=== PATIENT | female | born 1970 | race Caucasian/White ===

== ENCOUNTER → 2020-05-21 08:57 | Outpatient (CLI) | payer OTHER, SELFPAY ==
--- NOTE | ~2020-05-21 | MMUS_ITS ---
EXAMINATION: MM diagnostic carey RT w corazon, US breast RT limited HISTORY: Right breast pain TECHNIQUE: Additional 3-D tomosynthesis images of the right breast were performed and synthetic 2-D i mages were generated. CAD analysis was submitted and interpreted. High resolution right breast ultras ound was performed. COMPARISON: Comparison to multiple prior studies sequentially, with oldest reviewed study dated 02/02. FINDINGS: MAMMOGRAPHIC FINDINGS: Breast composed of scattered areas of fibroglandular density. There are no suspicious masses, calcifi cations or architectural distortion in the right breast to suggest malignancy. ULTRASOUND: Limited right breast ultrasound: Normal heterogeneous echotexture without focal solid or cystic mass. IMPRESSION: 1. No mammographic or sonographic evidence for malignancy in the right breast. 2. Routine yearly screening mammogram and regular clinical breast examination are recommended. BI-RADS Category 1: Negative Reviewed, dictated and finalized at location A. IMPRESSION: 1. No mammographic or sonographic evidence for malignancy in the right breast. 2. Routine yearly screening mammogram and regular clinical breast examination a re recommended. BI-RADS Category 1: Negative
== END ==
PROVIDERS: Visit Provider Obstetrics & Gynecology
DX: N63.0 Unspecified lump in unspecified breast (principal)
CPT/HCPCS: 76642; 77061; 77065; G0279

== ENCOUNTER 2021-01-29 12:28 | Outpatient (CLI) | payer OTHER, SELFPAY ==
--- NOTE | ~2021-01-29 | XR_ITS ---
EXAMINATION: XR shoulder LT min 2V INDICATION: Left shoulder pain TECHNIQUE: Four views of the left shoulder are submitted. COMPARISON: None FINDINGS: Normal alignment. No fracture. Glenohumeral and acromioclavicular joint spaces are normal. Soft tissues are unremarkable. IMPRESSION: 1. No acute osseous abnormality. Reviewed, dictated and finalized at location A. STRIAL CONTROLLER
--- NOTE | ~2021-01-29 | XR_ITS ---
EXAMINATION:XR_[id number]_CR DATE: 01/29/2021 13:11 INDICATION: Neck and left shoulder pain TECHNIQUE: AP, lateral, lateral swimmers and odontoid views of the cervical spine are provided. COMPARISON: None FINDINGS: There is reversal of the normal cervical lordosis. Alignment is normal. The odontoid is int act. No fracture is identified. The vertebral body heights are normal. There is mild loss of interver tebral disc space height at C5-6 and C6-7. Small degenerative osteophytes project from the anterior e ndplates of multiple vertebral bodies at C5-6 and C6-7. Prevertebral soft tissues are normal. IMPRESSION: 1. Mild cervical spondylosis without acute findings. Reviewed, dictated and finalized at location A. T OFFICE HELP
--- NOTE | ~2021-01-29 | XR_ITS ---
EXAMINATION: XR thoracic spine 2V DATE: 01/29/2021 13:11 INDICATION: Thoracic back pain TECHNIQUE: AP and lateral views of the thoracic spine are obtained. COMPARISON: None. FINDINGS: There is no fracture, dislocation, or subluxation. The vertebral body heights are maintaine d. There is mild loss of intervertebral disc space height in the midthoracic spine. Small degenerativ e osteophytes project from the anterior endplates of multiple vertebral bodies. Surgical clips in the right upper quadrant are likely from prior cholecystectomy. Sutures project over the midline upper a bdomen. IMPRESSION: 1. Mild thoracic spondylosis without acute findings. Reviewed, dictated and finalized at location A. LINE EXAMINER
== END 2021-01-29 12:29 ==
PROVIDERS: PCP Family Medicine; Visit Provider Nurse Practitioner Family
DX: M25.512 Pain in left shoulder (principal); M47.894 Other spondylosis, thoracic region; M47.892 Other spondylosis, cervical region
CPT/HCPCS: 72040; 72070; 73030

== ENCOUNTER 2021-02-03 13:30 | Outpatient (RCR) | payer OTHER, SELFPAY ==
[2020-12-15 14:00] VITALS: BP_SYST 140
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
--- NOTE | 2021-01-06 14:14 | PTOPEVAL ---
PHYSICAL THERAPY RE-EVALUATION AND UPDATED PLAN OF CARE 01-06-21 Refer to the clinical summary below for comparison to the initial evaluation. The goals were partially achieved. Continue PT treatment 1-2 x/wek for 4 weeks. Thank you for referring Kaylen Hernandez to [facility].? Please review, sign, date and return this plan of care MIGUEL ÁNGEL. I agree with and certify that the following plan of care is medically necessary. Referring Physician Date Attending Provider: Dinesh Limon MD *PT Outpatient Re-Evaluation Document 01/06/21 13:20 LORENA (Rec: 01/06/21 14:14 LORENA [id number]) Subjective Information Kaylen reports: is doing Query Text:As Reported By Patient/ exercises at home and using Family shoulder as able to at home; have been trying to do less at home, but pain with all activity- laundry only fold 2- 3 pieces of clothes then have to stop due to pain, unable to mop floor; worried that something is wrong with the shoulder; wants to continue therapy until see dr and have him check her shoulder; Pain Assessment Timing of Pain Assessment Timing of Pain Assessment Assessment Pain Scale Pain Scale Used Numeric (1 - 10) Self Report Pain Assessment Left Shoulder(s) Reported Pain Level 4 Pain Description Aching,Burning,Radiating, Tightness Pain Radiation Left Arm Radicular Pain Location into mid-lateral humerus; distal tricep- above elbow;in forearm 2-3x/day Pain Frequency Chronic,Continuous Other Pain Description quick sting and sharp pain last few seconds; Lowest Pain Intensity 2 Greatest Pain Intensity 7 Pain Aggravating Factors Exercise/Activity Other Pain Aggravating Factors quick motion of unplugging crockpot;close car door, with L arm Additional Pain Comments increase pain in thoracic and lumbar areas of back; Pain Score Pain Score 4: Self Report Additional Pain Score Comments with sleeping awaken 2-3 x/ night due to pain; cannot tolerate lying on her L shoulder in bed Interventions Used Interventions Used By Clinicians Education,Exercise Pain Relief Interventions Used By Heat Patient Upper Extremity Range of Mo
--- NOTE | 2021-02-03 14:19 | PTOPEVAL ---
Addendum entered by Chela Aguilar, PT 02/26/21 16:30: 02-26-21: pt returned to dept with orders to continue PT for her shoulder; this discharge will be disregarded; A reevaluation appointment of her shoulder has been scheduled to restart therapy for her shoulder; Original Note: PHYSICAL THERAPY DISCHARGE 02-03-21 Refer to the clinical summary for her status at today's session, compared to the last reevaluation. The goals were partially achieved--ROM and strength increased, but continues to have pain. Thank you for referring Kaylen Hernandez to [facility] [place], for the diagnosis of L shoulder pain. Please review, sign, date and return this discharge MIGUEL ÁNGEL. I agree with and certify that the following plan of care is medically necessary. Referring Physician Date Attending Provider: Dinesh Limon MD Referring Provider: Dinesh Limon MD Document 02/03/21 13:30 LORENA (Rec: 02/03/21 14:17 LORENA [id number]) Assessment Status Discharge Subjective Information Kaylen reports: shoulder is Query Text:As Reported By Patient/ better, but still aching and Family limiting her use of arm; not able to lie on L side; quick motions hurt and have dropped water bottle, after reaching into fridge to get it; saw last week- got xrays of neck, back and shoulder; dr to send over orders for neck/back treatment; agrees to discharge from PT for shoulder , to continue home exercises. Pain Assessment Timing of Pain Assessment Timing of Pain Assessment Assessment Pain Scale Pain Scale Used Numeric (1 - 10) Self Report Pain Assessment Left Shoulder(s) Reported Pain Level 2 Pain Description Aching,Soreness,Tender on Palpation,Tightness Pain Radiation Left Arm Pain Frequency Chronic,Continuous Other Pain Description anterior joint/pec and posterior joint/tricep, radicular to mid tricep Lowest Pain Intensity 2 Greatest Pain Intensity 5 Pain Aggravating Factors Exercise/Activity Other Pain Aggravating Factors cannot lie on L shoulder Pain Behaviors Grimacing,Guarding Pain Score Pain Score 2: Self Report Additional Pain Score Comments self assessment with the Quick DASH is 34% functional limitation; able to do home tasks- increase pain with small, quick motions-close car door, reach fridge door,
--- NOTE | 2021-03-02 10:45 | PCPTNOTE ---
pt called and canceled appointment for shoulder reevaluation, due to being in ER for falling down stairs.
--- NOTE | 2021-03-02 11:41 | PCPTNOTE ---
This treatment is being continued on visit number [id number]. Please see documentation on both accounts to view progress. Completed interventions, outcomes, and problems have been marked as Inactive to facilitate the copying of the Care plan routine for recurring accounts.
== END 2021-03-02 11:30 | disposition home or self-care (01) ==
LOC: ANHPT 13:30
PROVIDERS: PCP Family Medicine; Referring Provider Family Medicine; Visit Provider Family Medicine
DX: M25.512 Pain in left shoulder (principal)
CPT/HCPCS: 97014; 97035; 97110; 97140; 97161; G0283

== ENCOUNTER 2021-03-02 10:29 | Emergency (ER) | payer OTHER, SELFPAY ==
--- NOTE | ~2021-03-02 | XR_ITS ---
EXAMINATION: XR hip LT 2V w AP pelvis DATE: 03/02/2021 12:17 INDICATION: Left hip pain. Fall. TECHNIQUE: An anteroposterior view of the pelvis and 2 views of left hip were obtained. COMPARISON: None. FINDINGS: Bone alignment is normal. No fracture. There is mild osteoarthritis of the hips characteriz ed by tiny marginal osteophytes. There is an intrauterine device in expected position. IMPRESSION: 1. Mild osteoarthritis of the hips. Reviewed, dictated and finalized at location A.
--- NOTE | ~2021-03-02 | XR_ITS ---
EXAMINATION: XR femur LT min 2V DATE: 03/02/2021 12:17 INDICATION: Left thigh pain. Fall. TECHNIQUE: 2 views of left femur on 4 radiographs were obtained. COMPARISON: None. FINDINGS: Bone alignment is normal. No fracture. There is mild left hip and knee osteoarthritis angela cterized by tiny marginal osteophytes. No knee joint effusion. There is an intrauterine device in exp ected position. IMPRESSION: 1. Mild polyarticular osteoarthritis. Reviewed, dictated and finalized at location A.
[2021-03-02 11:36] VITALS: BP 133/75; PULSE 70; RESP 14; TEMP 36.9; O2SAT 99
[2021-03-02] MEDS: HYDROcodone/acetaminophen (*CRX) 5-325 MG TABLET 1 TAB PO (11:43)
--- NOTE | 2021-03-02 13:31 | ED.GENADULT ---
HPI - General Adult General Chief complaint: Fall Stated complaint: fall down 5 steps Time Seen by Provider: 03/02/21 10:54 History of Present Illness HPI narrative: Patient is a 50-year-old female who presents ER after a trip and fall. She fell forward down 5 stairs. Her left leg got extended backwards behind her. She has left anterior thigh pain. No numbness or tingling to lower extremity. She is able to walk. She did not strike her head or lose consciousness. No other reports of injury. Related Data Allergies Allergy/AdvReac Type Severity Reaction Status Date / Time adhesive Allergy Severe Rash Verified 03/02/21 11:29 bismuth subsalicylate Allergy Severe RASH Verified 02/25/21 15:01 cefadroxil Allergy Severe RASH Verified 02/25/21 15:01 Iodinated Contrast Media Allergy Severe Dyspnea / Verified 03/02/21 11:30 SOB latex Allergy Severe RASH Verified 02/25/21 15:01 prednisone Allergy Severe Rash Verified 03/02/21 11:29 CONTRAST DYE Allergy Severe Dyspnea / Uncoded 02/25/21 15:01 SOB DIAL SOAP Allergy Severe RASH Uncoded 02/25/21 15:01 Review of Systems Constitutional: Constitutional: Denies chills, Denies fever(s) and Denies weakness Gastrointestinal: Gastrointestinal: Denies nausea and Denies vomiting Musculoskeletal: Musculoskeletal: Denies arthralgias, Denies joint swelling and Reports muscle cramps Neurologic: Denies confusion, Denies syncope, Denies focal weakness and Denies numbness PMFSH Past Medical History Medical History GERD (gastroesophageal reflux disease) HTN (hypertension) Surgical History Surgical History History of cholecystectomy History of D&C History of splenectomy Family History Family History Sibling Lung cancer Heart disease Father Hypertension Heart disease Mother Hypertension Cerebrovascular accident Social History Social History (Updated 02/25/21 @ 15:02 by Mary Lopez MA) Social History: Smoking status: Never smoker Second hand tobacco smoke exposure: No Alcohol intake: never Substance use: never Substance use type: does not use Gender identity (if verbalized by the patient): Female Exam Narrative: Exam Narrative: GENERAL: Well-appearing, well-nourished, and in no acute distress. HEAD: Normocephalic, atraumatic. HEART: Regular rate and rhythm. Normal peripheral pulses. EXTREMITIES: Focused exam of the lower extremities reveals normal range of motion after pain medication in the hip/knee. Mild tenderness to the left anterior thigh without bruising/hematoma/mass. SKIN: Warm, dry, no rash. NEURO: No focal deficits. Alert and oriented x3. PSYCH: Normal mood and affect. Course Course Emergency Course: Movement improved with [place]. Discharge home with anti-inflammatories. Patient has her own muscle relaxers at home. Patient reports she can take ibuprofen & naproxen. Vital Signs Vital signs: Vital Signs Temperature 98.5 F 03/02/21 11:36 Pulse Rate 70 03/02/21 11:36 Respiratory Rate 14 03/02/21 11:36 Blood Pressure 133/75 03/02/21 11:36 Pulse Oximetry 99 03/02/21 11:36 Temperature 98.5 F 03/02/21 11:36 Pulse Rate 70 03/02/21 11:36 Respiratory Rate 14 03/02/21 11:36 Blood Pressure 133/75 03/02/21 11:36 Pulse Oximetry 99 03/02/21 11:36 Medical Decision Making Vital Signs Vital Signs: Vital Signs Temperature 98.5 F 03/02/21 11:36 Pulse Rate 70 03/02/21 11:36 Respiratory Rate 14 03/02/21 11:36 Blood Pressure 133/75 03/02/21 11:36 Pulse Oximetry 99 03/02/21 11:36 Temperature 98.5 F 03/02/21 11:36 Pulse Rate 70 03/02/21 11:36 Respiratory Rate 14 03/02/21 11:36 Blood Pressure 133/75 03/02/21 11:36 Pulse Oximetry 99 03/02/21 11:36 Lab Data Labs: UCG Bedside Result Negative
[2021-03-02 13:52] VITALS: BP 115/75; PULSE 65; RESP 14; O2SAT 99
== END 2021-03-02 13:52 | disposition home or self-care (01) ==
PROVIDERS: Emergency Provider Emergency Medicine; PCP Family Medicine
DX: S76.112A Strain of left quadriceps muscle, fascia and tendon, initial encounter (principal); K21.9 Gastro-esophageal reflux disease without esophagitis; I10 Essential (primary) hypertension; Z90.81 Acquired absence of spleen; M16.0 Bilateral primary osteoarthritis of hip; M16.12 Unilateral primary osteoarthritis, left hip; M17.12 Unilateral primary osteoarthritis, left knee; W10.9XXA Fall (on) (from) unspecified stairs and steps, initial encounter
CPT/HCPCS: 73502; 73552; 81025; 99283; A9270

== ENCOUNTER 2021-04-09 13:00 | Outpatient (RCR) | payer OTHER, SELFPAY ==
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
--- NOTE | 2021-04-09 13:59 | PTOPEVAL ---
PHYSICAL THERAPY RE-EVALUATION 04-09-21 Refer to the clinical summary below, for her status with today's reevaluation. Mrs. Hernandez continues to have pain and spasms over thoracic- lumbar areas. With heat, ice, stretching and electrical stim, her pain is decreased. She is independent with her home exercises and has good postural awareness. She has a follow up appointment with you and wants to discuss the options for her back pain. PT is on hold for now. At the appointment, if PT is to continue, please give her a new script. Thank you for referring Kaylen Hernandez to [facility].? Please review, sign, date and return this plan of care MIGUEL ÁNGEL. I agree with and certify that the following plan of care is medically necessary. Referring Physician Date Attending Provider: VAISHALI Acharya Referring Provider: Dinesh Limon MD *PT Outpatient Evaluation Start: 02/26/21 15:19 Document 04/09/21 13:10 LORENA (Rec: 04/09/21 13:58 LORENA [id number]) Assessment Status Re-evaluation Subjective Information Kaylen reports: back is better, Query Text:As Reported By Patient/ but is going up my spine more Family ; constant pain, ache; doing back exercises at home and they help feel better; to see dr in about 2 weeks; want to do exercises at home until see dr and discuss therapy and next step for her back pain; Pain Assessment Timing of Pain Assessment Timing of Pain Assessment Assessment Pain Scale Pain Scale Used Numeric (1 - 10) Self Report Pain Assessment Bilateral Back Reported Pain Level 3 Pain Description Aching Radicular Pain Location R and L thoracic -lumbar and upper sacral/ R = L pain Other Pain Description cannot get comfortable; constantly there; Lowest Pain Intensity 3 Greatest Pain Intensity 8 Pain Aggravating Factors Exercise/Activity,Lifting, Sitting,Weight Bearing/ Standing Other Pain Aggravating Factors riding sld teacher, sit,stand, carry laundry baskets Pain Score Pain Score 3: Self Report Additional Pain Score Comments Oswestry self assessment functional score of 34% limitation in activity level; reported tolerances with: home actiivty 1 hour, standing 1 hr, sleeping- 4 hours at time; sitting 1 hr; have ordered a new mattress to see if it will help- not have
--- NOTE | 2021-05-13 15:38 | PCPTNOTE ---
PHYSICAL THERAPY DISCHARGE 05-13-21 Attending Provider: VAISHALI Acharya Patient:Kaylen Hernandez Date of :1970 Mrs. Hernandez has not returned for any further treatments since the reevaluation on 04/09/2021, therefore she will be discharged at this time. Refer to the reevaluation report for her status at the last session. Thank you for referring Kaylen to [facility]. Please review, sign, date and return this discharge summary MIGUEL ÁNGEL. I have been updated about the patient's current status and I agree with discharge from the above service at this time. Referring Physician Date
== END 2021-05-15 08:15 | disposition home or self-care (01) ==
LOC: ANHPT 13:00
PROVIDERS: PCP Family Medicine; Referring Provider Family Medicine; Visit Provider Nurse Practitioner Family
DX: M25.512 Pain in left shoulder (principal); M79.622 Pain in left upper arm; M54.6 Pain in thoracic spine; M54.5 Low back pain
CPT/HCPCS: 97014; 97110; 97140; 97161; G0283

== ENCOUNTER 2021-04-09 14:00 | Outpatient (RCR) | payer OTHER, SELFPAY ==
[2021-03-02 11:31] VITALS: BP_SYST 140
--- NOTE | 2021-03-02 11:43 | PCPTNOTE ---
This treatment is being continued from visit number [id number] Please see documentation on both accounts to view progress. Completed interventions, outcomes, and problems have been marked as Inactive to facilitate the copying of the Care plan routine for recurring accounts.
--- NOTE | 2021-03-04 09:20 | PTOPEVAL ---
PHYSICAL THERAPY REEVALUATION AND UPDATED PLAN OF CARE 03-04-21 Refer to the clinical summary below for her status compared to the last reevaluation on 02-03-21. At that time, discharge was planned for shoulder treatment, then she returned with new orders to continue therapy, for insurance approval for MRI. PT is to continue 0-1x/week for 5 weeks, due to pt being out of town for 2 weeks of the time frame. Thank you for referring Kaylen Hernandez to [facility], for the diagnosis of L shoulder pain.? Please review, sign, date and return this plan of care MIGUEL ÁNGEL. I agree with and certify that the following plan of care is medically necessary. Referring Physician Date Attending Provider: Dinesh Limon MD Document 03/04/21 08:05 LORENA (Rec: 03/04/21 08:56 LORENA [id number]) Assessment Status Re-evaluation Subjective Information Corinna reports: wants her to Query Text:As Reported By Patient/ continue PT, before can order Family an MRI; also have orders for PT for her back--started last week here; fell 2 days ago, going down steps, feet wet, slipped L leg bent behind her, fell backwards, hitting butt on stairs and arms were out to the side; to ER- x rays negative for L LE; had continmued to do her shoulder exercises since last here; will be out of town for 2 weeks; Pain Assessment Timing of Pain Assessment Timing of Pain Assessment Assessment Pain Scale Pain Scale Used Numeric (1 - 10) Self Report Pain Assessment Left Shoulder(s) Reported Pain Level 4 Pain Description Aching,Pulling,Throbbing Pain Radiation Left Arm Radicular Pain Location lateral humerus to below elbow ;post scapula Pain Frequency Chronic,Continuous Other Pain Description quick movements increase pain Lowest Pain Intensity 2 Greatest Pain Intensity 4 Pain Aggravating Factors Exercise/Activity Other Pain Aggravating Factors quick movements; Pain Behaviors Anxious,Grimacing,Guarding Additional Pain Comments on muscle relaxer for L LE pain, sleeping is OK; keep arm on pillow Pain Score Pain Score 4: Self Report Additional Pain Score Comments self assessment Quick DASH score of 25% limitation have not been lying on her L side due to L LE pain; electrical stim an
--- NOTE | 2021-04-09 14:50 | PTOPEVAL ---
PHYSICAL THERAPY RE-EVALUATION 04-09-21 Refer to the clinical summary below for her status with today's reevaluation, compared to the last re-eval. Corinna has a follow up appointment and wants to HOLD on PT treatment, to discuss further assessment of her shoulder. If PT is to continue, please issue her a new script. Thank you for referring Kaylen Hernandez to [facility].? Please review, sign, date and return this plan of care MIGUEL ÁNGEL. I agree with and certify that the following plan of care is medically necessary. Referring Physician Date Referring Provider: Dinesh Limon MD *PT Outpatient Re-Evaluation Document 04/09/21 14:05 LORENA (Rec: 04/09/21 14:49 LORENA [id number]) Subjective Information Kaylen reports: most pain with Query Text:As Reported By Patient/ pressure on L shoulder- lean Family on arm or shoulder; reaching behind back and quick motions hurt the most; cannot vacuum with L arm; with doing her floral arrangements- doing about half of what she used to be able to do because of pain ; doing all exercises at home for shoulder; want to get an MRI of her shoulder and see what is going on with it-- tired of the pain; wants to see dr and follow up with what is next for her shoulder; Pain Assessment Timing of Pain Assessment Timing of Pain Assessment Assessment Pain Scale Pain Scale Used Numeric (1 - 10) Self Report Pain Assessment Left Shoulder(s) Reported Pain Level 1 Pain Description Dull Radicular Pain Location lateral humerus, to above elbow Pain Frequency Chronic,Continuous Other Pain Description anterior shoulder and top of GH joint; pulls little on posterior shoulder Lowest Pain Intensity 1 Greatest Pain Intensity 2 Pain Aggravating Factors Exercise/Activity,Lifting Other Pain Aggravating Factors lifting grocery bag too heavy, lift gallon milk, lie on L side, quick motion Pain Score Pain Score 1: Self Report Additional Pain Score Comments Quick DASH self assessment functional score of 23% limitation in activity; dicussed use of home TENS for pain relief for shoulder, pad placement and use of unit;
--- NOTE | 2021-05-13 15:33 | PCPTNOTE ---
PHYSICAL THERAPY DISCHARGE 05-13-21 Attending Provider: Dinesh Limon MD Patient:Kaylen Hernandez Date of :1970 Mrs. Hernandez has not returned for any further treatments since the reevaluation on 04/09/2021, therefore she will be discharged at this time. Refer to the reevaluation for her status at the last session. Thank you for referring Kaylen to [facility]. Please review, sign, date and return this discharge summary MIGUEL ÁNGEL. I have been updated about the patient's current status and I agree with discharge from the above service at this time. Referring Physician Date
== END 2021-05-15 08:16 | disposition home or self-care (01) ==
LOC: ANHPT 14:00
PROVIDERS: PCP Family Medicine; Referring Provider Family Medicine; Visit Provider Family Medicine
DX: M25.512 Pain in left shoulder (principal); M79.622 Pain in left upper arm; M54.6 Pain in thoracic spine; M54.5 Low back pain
CPT/HCPCS: 97014; 97110; 97140; G0283

== ENCOUNTER 2022-03-15 15:25 | Outpatient (CLI) | payer OTHER, SELFPAY ==
--- NOTE | ~2022-03-15 | XR_ITS ---
XR lumbar spine 2-3V DATE: 03/15/2022 15:47 INDICATION: Low back pain TECHNIQUE: AP, lateral, coned lateral lumbosacral views COMPARISON: 04/28/2019 CT abdomen pelvis FINDINGS: Normal alignment of the lumbar spine. No fracture or bone destruction or spondylolisthesis. There is minimal degenerative spurring of the lumbar spine and minimal loss of height at L4-5 inters pace but the lumbar and lumbosacral interspaces are relatively preserved otherwise. Lower thoracic and lumbar pedicles are intact. The sacroiliac joints are intact. Radiopaque sutures of the upper mid anterior abdominal wall Status post cholecystectomy. IMPRESSION: Mild degenerative change of the lumbar spine Reviewed, dictated and finalized at location A.
== END 2022-03-15 15:26 | disposition home or self-care (01) ==
LOC: ANHIMG 15:30
PROVIDERS: PCP Family Medicine; Visit Provider Nurse Practitioner Family
DX: M51.36 Other intervertebral disc degeneration, lumbar region (principal)
CPT/HCPCS: 72100

== ENCOUNTER 2022-06-10 11:00 | Outpatient (RCR) | payer OTHER, SELFPAY ==
--- NOTE | 2022-04-15 15:41 | PTOPEVAL ---
PHYSICAL THERAPY INITIAL EVALUATION. Thank you for referring Kaylen Hernandez to [facility].? The patient is scheduled to be seen for therapy? 2x/week for 4 weeks. Please review, sign, date and return this plan of care MIGUEL ÁNGEL. I agree with and certify that the following plan of care is medically necessary. Referring Physician Date Attending Provider: VAISHALI Acharya *PT Outpatient Evaluation Start: 04/15/22 Evaluation Information Diagnosis Low back pain Onset 1 year Subjective Information Pt states she fell down 5 Query Text:As Reported By Patient/ stairs around a year ago. At Family that time she hurt her shoulder and back. He shoulder has been treated previously with therapy and is doing okay , she still has some pain from this. Pt states she has back pain 100% of the time. Pt states she wakes up nighty due to back pain, she states she can sleep no longer than 3 hours before her pain starts. Pt states she cannot stand longer than 15 minutes before she needs to sit. 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 Pain Assessment Lower Back Reported Pain Level 8 Pain Description Aching,Crushing,Soreness Pain Frequency Chronic,Intermittent Lowest Pain Intensity 6 Greatest Pain Intensity 8 Pain Aggravating Factors Lifting,Sitting,Weight Bearing /Standing Pain Behaviors None Interventions Used By Clinicians Education,Exercise,Rest Pain Relief Interventions Used By Heat,Ice,Inactivity/Rest, Patient Medication Lumbar ROM Lumbar Flexion (0-90) 80 Lumbar Flexion Active Floor Lumbar Extension (0-40) 40 Lateral Flexion can reach to 4in above lateral Query Text:Active Hands to: knee joint line amada, leaning to the R and L hurts the L side Lateral Rotation Right (0-45) 45 Lateral Rotation Left (0-45) 45 Lower Extremity Range of Motion General Lower Extremity Range of Motion Reason Not Measured WFL/Left,WFL/Right Lower Extremity Muscle Strength Testing General Lower Extremity Strength WFL/Left,WFL/Right Gross Lower Extremity Strength L hip flexion 4-/5 R
--- NOTE | 2022-05-13 11:29 | PTOPEVAL ---
PHYSICAL THERAPY PROGRESS REPORT. Thank you for referring Kaylen Hernandez to [facility].? The patient is scheduled to be seen for therapy? 2x/week for 4 weeks. Please review, sign, date and return this plan of care MIGUEL ÁNGEL. I agree with and certify that the following plan of care is medically necessary. Referring Physician Date Attending Provider: VAISHALI Acharya *PT Outpatient Evaluation Start: 04/15/22 Evaluation Information Diagnosis Low back pain Onset 1 year Subjective Information Pt states she feels like she Query Text:As Reported By Patient/ is starting to make really Family good progress. She states the last 2 visits things really started to click. She states she still has back pain, but it is starting to ease up. Pt states she has began to start doing things she has not done before. Pain Assessment Lower Back Reported Pain Level 5 Pain Description Pressure,Soreness,Tightness Greatest Pain Intensity 8 Lumbar ROM Lumbar Flexion (0-90) 80 Lumbar Flexion Active Floor Lumbar Extension (0-40) 40 Lateral Flexion can reach to 2in above lateral Query Text:Active Hands to: knee joint line amada, leaning to the R and L hurts the L side Lateral Rotation Right (0-45) 45 Lateral Rotation Left (0-45) 45 Lower Extremity Range of Motion General Lower Extremity Range of Motion WFL/Left,WFL/Right Lower Extremity Muscle Strength Testing General Lower Extremity Strength WFL/Left,WFL/Right Gross Lower Extremity Strength L hip flexion 5/5 R hip flexion 5/5 Amada knee flexion/extension 5/5 amada hip extension 4/5 amada hip abduction 4/5 Muscle Length Testing Two-Joint Hip Flexor Shortened Muscles Short (R) Iliopsoas,Short (L) Iliopsoas,Short (R) Rectus Femoris,Short (L) Rectus Femoris Right Prone Hip Internal Rotator Length 30 Left Prone Hip Internal Rotator Length ( 30 Right Prone Hip External Rotator Length 60 Left Prone Hip External Rotator Length ( 60 Left Hamstring Length -20 Right Hamstring Length -10 Right Prone Knee Flexor Muscle Length ( 110 Left Prone Knee Flexor Muscle Length ( 110 Posture Head/C-Spine Posture Forward Head Thoracic Spine Posture Flattened Lumbar Spi
--- NOTE | 2022-06-10 12:57 | PTOPEVAL ---
PHYSICAL THERAPY PROGRESS REPORT AND DISCHARGE SUMMARY. Thank you for referring Kaylen Hernandez to [facility].? The patient is to be discharged from skilled therapy services at this time. Please review, sign, date and return this plan of care MIGUEL ÁNGEL. I agree with and certify that the following plan of care is medically necessary. Referring Physician Date Attending Provider: VAISHALI Acharya Evaluation Information Diagnosis Low back pain Onset 1 year Subjective Information Pt states she thinks therapy Query Text:As Reported By Patient/ is helping but she is having Family some pain in her low back and thighs. She states sleeping has been getting better but its hard to lay on her right side. She described her pain and achy and tender, unsure if this is due to muscle soreness. Pain Assessment Lower Back Reported Pain Level 5 Pain Description Soreness Greatest Pain Intensity 7 Lumbar ROM Lumbar Flexion (0-90) 80 Lumbar Flexion Active Floor Lumbar Extension (0-40) 45 Lateral Flexion can reach to 2in above lateral Query Text:Active Hands to: knee joint line amada, leaning to the R and L hurts the L side Lateral Rotation Right (0-45) 45 Lateral Rotation Left (0-45) 45 Lower Extremity Range of Motion General Lower Extremity Range of Motion WFL/Left,WFL/Right Lower Extremity Muscle Strength Testing General Lower Extremity Strength WFL/Left,WFL/Right Gross Lower Extremity Strength L hip flexion 5/5 R hip flexion 5/5 Amada knee flexion/extension 5/5 amada hip extension 4+/5 amada hip abduction 4+/5 Muscle Length Testing Muscle Length Testing Two-Joint Hip Flexor Shortened Muscles Short (R) Iliopsoas,Short (L) Iliopsoas,Short (R) Rectus Femoris,Short (L) Rectus Femoris Right Prone Hip Internal Rotator Length 30 Left Prone Hip Internal Rotator Length ( 30 Right Prone Hip External Rotator Length 60 Left Prone Hip External Rotator Length ( 60 Left Hamstring Length -10 Right Hamstring Length -10 Right Prone Knee Flexor Muscle Length ( 110 Left Prone Knee Flexor Muscle Length ( 110 Posture Head/C-Spine Posture Forward Head Thoracic Spine Posture Flattened Lumbar Spine Posture Increased
== END 2022-06-11 11:30 | disposition home or self-care (01) ==
LOC: ANHPT 11:00
PROVIDERS: PCP Family Medicine; Visit Provider Nurse Practitioner Family
DX: M54.50 Low back pain, unspecified (principal)
CPT/HCPCS: 97110; 97112; 97140; 97161; 97530

== ENCOUNTER 2022-08-13 01:31 | Day surgery (SDC) | payer OTHER, SELFPAY ==
[2022-07-29 13:22] VITALS: BMI 33.7
--- NOTE | 2022-08-12 15:45 | PM.HPGS ---
History of Present Illness History of Present Illness Consent: Risks, benefits, and alternatives have been discussed and questions answered. Patient agrees to proceed with procedure. Chief complaint: neoplasm screening Narrative: Kaylen Hernandez is a 51 year old female Referred for colon cancer screening. Review of Systems Review of Systems: All systems reviewed & are unremarkable except as noted in HPI and below PMFSH Past Medical History Medical History GERD (gastroesophageal reflux disease) HTN (hypertension) Surgical History Surgical History History of cholecystectomy History of D&C History of splenectomy Family History Family History Sibling Lung cancer Heart disease Hypertension Father Hypertension Heart disease Mother Hypertension Cerebrovascular accident Depression Grandparent Hypertension Heart disease Social History Social History Social History: Smoking status: Never smoker Second hand tobacco smoke exposure: No Alcohol intake: never Substance use: never Substance use type: does not use Living arrangements: with family Gender identity (if verbalized by the patient): Female Sexual Orientation (if Verbalized by the Patient): Straight or Heterosexual Spiritual care concerns: No Meds Home Medications and Allergies Home Medications Medication Instructions Recorded Confirmed Type buspirone 5 mg tablet 10 mg PO BID #60 tabs 05/25/22 07/29/22 Rx lisinopril 10 1 tablet PO DAILY #30 tabs 05/28/22 07/29/22 Rx mg-hydrochlorothiazide 12.5 mg tablet omeprazole 20 mg capsule,delayed 20 mg PO DAILY #90 caps 06/28/22 07/29/22 Rx release sertraline 50 mg tablet 50 mg PO DAILY #90 tabs 08/10/22 Rx Allergies Allergy/AdvReac Type Severity Reaction Status Date / Time adhesive Allergy Severe Rash Verified 07/29/22 13:19 bismuth subsalicylate Allergy Severe RASH Verified 07/29/22 13:19 cefadroxil Allergy Severe RASH Verified 07/29/22 13:19 Iodinated Contrast Media Allergy Severe Dyspnea / Verified 07/29/22 13:19 SOB latex Allergy Severe RASH Verified 07/29/22 13:19 prednisone Allergy Severe Rash Verified 07/29/22 13:19 CONTRAST DYE Allergy Severe Dyspnea / Uncoded 07/29/22 13:19 SOB DIAL SOAP Allergy Severe RASH Uncoded 07/29/22 13:19 Exam Const: General: alert Orientation/consciousness: patient oriented x3 Resp: Auscultation: clear to auscultation bilaterally Cardio: Rhythm: regular rhythm GI: GI Palp: Yes Soft to palpation and No Tenderness to palpation present (GI) Neuro: General: patient oriented x3 Assessment and Plan Assessment and plan (1) Colon cancer screening: Code(s): Z12.11 - Encounter for screening for malignant neoplasm of colon Status: Acute Assessment and Plan: Colonoscopy with possible biopsy or polypectomy or cautery or injection of substances.
[2022-08-13 07:04] VITALS: BP 126/74; PULSE 72; RESP 20; TEMP 36.5; O2SAT 98
[2022-08-13] MEDS: LACTATED RINGERS 1,000 ML 150 ML IV CONT (07:16)
--- NOTE | 2022-08-13 07:42 | WPDANESEPPF ---
Anes - Initial Pre Proc Eval Procedure: Operation Date: 08/13/22 08:00 Proposed Procedures p Screening Colonoscopy - Wali Gutierrez MD Date/Time: 08/13/22 07:42 Surgeon: Wali Gutierrez MD Pre Op Diagnosis: neoplasm screening Patient Data Age: 51 Gender: F Height: 1.6 m Weight: 91.3 kg Last Vital Signs Temp 97.7 F 08/13/22 07:04 Pulse 72 08/13/22 07:04 Resp 20 08/13/22 07:04 BP 126/74 08/13/22 07:04 Pulse Ox 98 08/13/22 07:04 O2 Del Method Room Air 08/13/22 07:04 Allergies Allergy/AdvReac Type Severity Reaction Status Date / Time adhesive Allergy Severe Rash Verified 08/13/22 07:03 bismuth subsalicylate Allergy Severe RASH Verified 08/13/22 07:03 cefadroxil Allergy Severe RASH Verified 08/13/22 07:03 Iodinated Contrast Media Allergy Severe Dyspnea / Verified 08/13/22 07:03 SOB latex Allergy Severe RASH Verified 08/13/22 07:03 prednisone Allergy Severe Rash Verified 08/13/22 07:03 CONTRAST DYE Allergy Severe Dyspnea / Uncoded 08/13/22 07:03 SOB DIAL SOAP Allergy Severe RASH Uncoded 08/13/22 07:03 Home Medications Medication Instructions Recorded Confirmed Type buspirone 5 mg tablet 10 mg PO BID #60 tabs 05/25/22 07/29/22 Rx lisinopril 10 1 tablet PO DAILY #30 tabs 05/28/22 07/29/22 Rx mg-hydrochlorothiazide 12.5 mg tablet omeprazole 20 mg capsule,delayed 20 mg PO DAILY #90 caps 06/28/22 07/29/22 Rx release sertraline 50 mg tablet 50 mg PO DAILY #90 tabs 08/10/22 08/13/22 Rx Patient hx anesthesia problems: none Family hx anesthesia problems: none Results Review: All pre-operative results and documents have been reviewed as part of the pre-operative evaluation. [facility] Past Medical History Medical History GERD (gastroesophageal reflux disease) HTN (hypertension) Surgical History Surgical History History of cholecystectomy History of D&C History of splenectomy Family History Family History Sibling Lung cancer Heart disease Hypertension Father Hypertension Heart disease Mother Hypertension Cerebrovascular accident Depression Grandparent Hypertension Heart disease Social History Social History Social History: Smoking status: Never smoker Second hand tobacco smoke exposure: No Alcohol intake: never Substance use: never Substance use type: does not use Living arrangements: with family Gender identity (if verbalized by the patient): Female Sexual Orientation (if Verbalized by the Patient): Straight or Heterosexual Spiritual care concerns: No Anes - Eval Final PreProcedure Day of Procedure 08/13/22 07:42 Patient weight: obese Heart: regular rate and rhythm Lungs: clear to auscultation Airway: Mallampati scale class II Neurological: alert and oriented Last oral intake: >/= 8 hours ASA classification: III Emergent: no Anesthetic plan: proceed Anesthesia type and monitoring: general GIVS and standard monitoring Results Review: All pre-operative results and documents have been reviewed as part of the pre-operative evaluation. Informed Consent: The patient's anesthetic plan and its attendant risks and benefits were discussed with the patient/family/POA. Questions were solicited and answers provided to the satisfaction of the patient/family/POA.
[2022-08-13 08:14] VITALS: BP 87/53; PULSE 96; RESP 12; O2SAT 96
[2022-08-13 08:24] VITALS: BP 95/57; PULSE 67; RESP 15; O2SAT 96
[2022-08-13 08:34] VITALS: BP 102/57; PULSE 67; RESP 22; O2SAT 100
== END 2022-08-13 08:37 | disposition home or self-care (01) ==
PROVIDERS: PCP Family Medicine; Visit Provider Internal Medicine Gastroenterology
PROC: 0DJD8ZZ Inspection of Lower Intestinal Tract, Via Natural or Artificial Opening Endoscopic (ICD-10-PCS; CPT 45378; principal; 2022-08-13 08:00)
DX: Z12.11 Encounter for screening for malignant neoplasm of colon (principal); K21.9 Gastro-esophageal reflux disease without esophagitis; I10 Essential (primary) hypertension; Z90.49 Acquired absence of other specified parts of digestive tract; E66.9 Obesity, unspecified; Z68.35 Body mass index [BMI] 35.0-35.9, adult
CPT/HCPCS: 45378; J2704; J7120

== ENCOUNTER → 2022-09-24 10:51 | Outpatient (CLI) | payer OTHER, SELFPAY ==
--- NOTE | ~2022-09-24 | MM_ITS ---
EXAMINATION: MM screening [facility] BI w corazon HISTORY: Screening TECHNIQUE: Craniocaudal and mediolateral oblique 3-D tomosynthesis images were obtained and synthetic 2-D images were generated. CAD analysis was submitted and interpreted. COMPARISON: Comparison to multiple prior studies sequentially, with oldest reviewed study dated 07/2015. BREAST PARENCHYMAL COMPOSITION: There are scattered areas of fibroglandular density. FINDINGS: There is no evidence of suspicious mass, calcification, or architectural distortion to sugg est malignancy in either breast. There has been no suspicious interval change. IMPRESSION: 1. No mammographic evidence of malignancy. 2. Recommend routine screening mammography in one year. BI-RADS Category 1: Negative Reviewed, dictated and finalized at location A.
== END ==
PROVIDERS: PCP Family Medicine; Visit Provider Nurse Practitioner Family
DX: Z12.31 Encounter for screening mammogram for malignant neoplasm of breast (principal)
CPT/HCPCS: 77063; 77067

== ENCOUNTER 2023-06-02 11:11 | Outpatient (CLI) | payer OTHER, SELFPAY ==
[2023-06-02 12:28] LABS: Alanine Aminotransferase 27 U/L (6-35); Aspartate Amino Transferase 32 U/L (14-36)
== END 2023-06-02 11:12 | disposition home or self-care (01) ==
LOC: ANHLAB 11:13
PROVIDERS: PCP Family Medicine; Visit Provider Podiatrist Foot & Ankle Surgery
DX: B35.1 Tinea unguium (principal)
CPT/HCPCS: 36415; 84450; 84460

== ENCOUNTER 2024-03-23 14:05 | Outpatient (CLI) | payer OTHER, SELFPAY ==
--- NOTE | ~2024-03-23 | MM_ITS ---
EXAMINATION: MM screening [facility] w corazon HISTORY: Screening mammogram TECHNIQUE: Craniocaudal and mediolateral oblique 3-D tomosynthesis images were obtained and synthetic 2-D images were generated. CAD analysis was submitted and interpreted. COMPARISON: 09/24/2022 bilateral screening mammogram 05/21/2020 diagnostic right mammogram and Limited right breast ultrasound 11/28/2019 diagnostic right mammogram and Limited right breast ultrasound 11/22/2019 bilateral screening mammogram examination BREAST PARENCHYMAL COMPOSITION: The breasts are almost entirely fatty. FINDINGS: There is no evidence of suspicious mass, calcification, or architectural distortion to sugg est malignancy in either breast. There has been no suspicious interval change. IMPRESSION: 1. No mammographic evidence of malignancy. 2. Recommend routine screening mammography in one year. BI-RADS 1: Negative Reviewed, dictated and finalized at location A.
== END 2024-03-23 14:06 | disposition home or self-care (01) ==
LOC: ANHIMG 14:08
PROVIDERS: PCP Family Medicine; Visit Provider Obstetrics & Gynecology
DX: Z12.31 Encounter for screening mammogram for malignant neoplasm of breast (principal)
CPT/HCPCS: 77063; 77067

== ENCOUNTER 2024-03-23 14:59 | Emergency (ER) | payer OTHER, SELFPAY ==
[2024-03-23 15:16] VITALS: BP 132/70; PULSE 104; RESP 16; TEMP 37.5; O2SAT 99
--- NOTE | 2024-03-23 15:18 | ED.URI ---
HPI - URI/Sore Throat General Chief Complaint: Upper Respiratory Infection Stated Complaint: Sore Throat Time Seen by Provider: 03/23/24 15:18 Source: patient Mode of arrival: ambulatory Limitations: no limitations History of Present Illness HPI Narrative: 53-year-old male presents of sore throat, swollen glands, fatigue, headache starting today. Patient called her primary care physician for an appointment was not able to get her in. Due to patient's history of splenectomy her primary care recommended she be seen in urgent care to rule out strep throat. All systems reviewed and negative except as noted above. Related Data Allergies Allergy/AdvReac Type Severity Reaction Status Date / Time adhesive Allergy Severe Rash Verified 03/23/24 15:07 bismuth subsalicylate Allergy Severe RASH Verified 03/23/24 15:07 cefadroxil Allergy Severe RASH Verified 03/23/24 15:07 Iodinated Contrast Media Allergy Severe Dyspnea / Verified 03/23/24 15:07 SOB latex Allergy Severe RASH Verified 03/23/24 15:07 prednisone Allergy Severe Rash Verified 03/23/24 15:07 CONTRAST DYE Allergy Severe Dyspnea / Uncoded 03/23/24 15:07 SOB DIAL SOAP Allergy Severe RASH Uncoded 03/23/24 15:07 Review of Systems Review of Systems: CONSTITUTIONAL: Denies fever, chills, or sweats. Reports fatigue. EYES: Denies visual changes, redness, or discharge. ENT: Denies rhinorrhea, congestion. Reports sore throat. Denies otalgia. CARDIOVASCULAR: Denies chest pain, palpitations, or edema. RESPIRATORY: Denies cough or dyspnea. GASTROINTESTINAL: Denies abdominal pain, nausea, vomiting, or diarrhea. GENITOURINARY: Denies dysuria or hematuria. SKIN: Denies rash or itching. MUSCULOSKELETAL: Denies back pain, joint pain, or myalgia. NEUROLOGIC: Denies headache, numbness, or weakness. PSYCHIATRIC: Denies anxiety or depression. All other systems reviewed are negative, except as documented in HPI. [facility] Past Medical History Medical History GERD (gastroesophageal reflux disease) HTN (hypertension) Surgical History Surgical History History of cholecystectomy History of D&C History of splenectomy Family History Family History Sibling Lung cancer Heart disease Hypertension Father Hypertension Heart disease Mother Hypertension Cerebrovascular accident Depression Grandparent Hypertension Heart disease Social History Social History Social History: Smoking status: Never smoker Second hand tobacco smoke exposure: No Alcohol intake: never Substance use: never Substance use type: does not use Living arrangements: with family Occupation/Education: occupation Gender identity (if verbalized by the patient): Female Sexual Orientation (if Verbalized by the Patient): Straight or Heterosexual Spiritual care concerns: No Comments At time of signature, agree with nursing past medical, surgical, social and family history. There is no relevant family history pertinent to the presenting complaint. Exam Narrative: GENERAL: This is a well-nourished, well-developed patient, in no apparent distress. HEAD: normocephalic, atraumatic. EYES: PERRL. Sclera clear/white. Vision is grossly intact. EARS: External ears normal, auditory canals clear and without drainage, TMs normal without perforation. Hearing grossly intact. NOSE: External nose normal with no obvious nasal discharge, nares without redness, no rhinorrhea. THROAT: Mucous membranes moist, erythema, tonsils 1+ bilaterally without exudates. NECK: Neck supple,tender anterior cervical lymphadenopathy. No masses or thyromegaly. CARDIOVASCULAR: Regular rate and rhythm without murmurs, gallops, or rubs. RESPIRATORY: Clear to auscultation. Breath sounds equal bilate
== END 2024-03-23 15:44 | disposition home or self-care (01) ==
PROVIDERS: Emergency Provider Nurse Practitioner Family; PCP Family Medicine
DX: J03.90 Acute tonsillitis, unspecified (principal); K21.9 Gastro-esophageal reflux disease without esophagitis; I10 Essential (primary) hypertension
CPT/HCPCS: 87081; 87880; 99213; G0463

== ENCOUNTER 2024-10-01 11:57 | Outpatient (CLI) | payer OTHER, SELFPAY ==
[2024-10-01 12:55] LABS: Influenza A QL RT-PCR Negative (Negative); Influenza B QL RT-PCR Negative (Negative); RSV RNA, RT-PCR Negative (Negative); SARS-CoV-2 RNA PCR Negative (Negative)
== END 2024-10-01 11:58 | disposition home or self-care (01) ==
LOC: ANHLAB 11:59
PROVIDERS: PCP Family Medicine; Visit Provider Physician Assistant
DX: R50.9 Fever, unspecified (principal); J02.9 Acute pharyngitis, unspecified; Z20.822 Contact with and (suspected) exposure to COVID-19
CPT/HCPCS: 87637

== ENCOUNTER 2025-06-24 02:33 | Emergency (ER) | payer BC, SELFPAY ==
--- NOTE | ~2025-06-24 | CT_ITS ---
Non-contrast CT scan of the Abdomen and Pelvis Clinical indication: Abdominal pain Technique: 2.5 mm axial scans were obtained through the abdomen and pelvis without intravenous or or al contrast. Dose reduction technique was used on this scan by utilizing automated exposure control a nd iterative reconstruction technique. The dose-length product (DLP) was 424.65 mGy-cm. Findings: Images through the lung bases reveal no abnormalities. Multiple nonobstructing right renal stones are present, measuring up to 5 mm. No ureteral stone or hy dronephrosis. No left renal stone evident. The liver, pancreas, and adrenals appear normal. Cholecystectomy clips are present. Status post presu med splenectomy. There is no aortic aneurysm. There is no evidence of bowel obstruction. There is a right incisional hernia containing loops of sma ll bowel. Images through the pelvis were performed. There is no evidence of ascites or lymphadenopathy. Urinary bladder unremarkable. IUD in place. No significant adnexal mass identified. No ascites. Impression: Right incisional hernia contains loops of small bowel. No bowel obstruction or bowel wall thickening. Multiple nonobstructing right renal stones. Reviewed, dictated and finalized at [facility]. Impression: Right incisional hernia contains loops of small bowel. No bowel obstruction or bowel wall thickening. Multiple nonobstructing right renal stones.
[2025-06-24 02:46] VITALS: BP 149/79; PULSE 71; RESP 17; TEMP 36.4; O2SAT 96
[2025-06-24 04:22] LABS: BEDSIDEPREGUCG Negative (Negative)
[2025-06-24 04:32] LABS: Add Urine Microscopic? YES; Appearance Urine Clear (Clear); Glucose Urine UA Negative (Negative); Leukocyte Esterase Ur Trace LEU/UL (Negative); Nitrate Urine Negative (Negative); Non Pathogenic Casts 0-2; Specific Grav Ur 1.023 (1.001-1.035)
[2025-06-24 04:33] LABS: Hematocrit 41.8 % (37.0-47.0); Hemoglobin 13.8 g/dL (12.0-15.0); Immature Granulocyte Percent A 0.4 % (0-0.5); Lymphocytes Absolute Auto 2.56 K/mm3 (0.9-3.2); Mean Corpuscular HGB Conc 33.0 g/dl (32-36); Mean Corpuscular Hemoglobin 31.1 pg (26-34); Mean Corpuscular Volume 94.1 fl (80-100); Nucleated Red Blood Cells Absolute Auto 0.000 K/mm3 (0.0-0.012); Nucleated Red Blood Cells Perc 0.0 % (0.0-0.2); Platelet Count Result 386 k/mm3 (150-375); Red Blood Count 4.44 M/mm3 (4.2-5.4); White Blood Count 16.2 K/mm3 (4.5-10.0)
[2025-06-24 04:41] LABS: Alanine Aminotransferase 27 U/L (6-35); Albumin Level 4.5 g/dL (3.5-5.1); Alkaline Phosphatase 97 U/L (38-126); Anion Gap 7 mmol/L (4-12); Aspartate Amino Transferase 30 U/L (14-36); Bilirubin,Total 0.6 mg/dL (0.2-1.3); Blood Urea Nitrogen 16 mg/dL (7-17); Calcium 10.1 mg/dL (8.4-10.2); Carbon Dioxide 30 mmol/L (22-30); Chloride 100 mmol/L (98-107); Estimated CRCL calculation 81 ml/min; Estimated Glomerular Filt Rate > 60; Glucose 154 mg/dL (65-110); Lipase 177 U/L (23-300); Potassium 3.9 mmol/L (3.4-5.0); Sodium 137 mmol/L (137-145); Total Protein 8.2 g/dL (6.3-8.2)
[2025-06-24 05:02] VITALS: BP 114/69; PULSE 79; RESP 15; O2SAT 98
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
[2025-06-24] MEDS: ONDANSETRON INJ 4 MG/2 ML VIAL IV PUSH (05:47)
[2025-06-24] MEDS: SODIUM CHLORIDE 0.9% IV 1,000 ML 999 ML IV CONT (05:47)
--- NOTE | 2025-06-24 05:49 | PC.NURSE ---
pt states I do not want pain medication right now. The pain is not bad
[2025-06-24] MEDS: MORPHINE SULFATE (*CRX) 4 MG/ML INJ IV PUSH (06:17)
[2025-06-24 06:40] VITALS: BP 109/69; PULSE 83; RESP 16; O2SAT 94
[2025-06-24] MEDS: HALOPERIDOL LACTATE 5 MG/ML VIAL 2.5 MG IV PUSH (07:02)
[2025-06-24 07:10] VITALS: BP 106/62; PULSE 85; RESP 16; O2SAT 96
[2025-06-24] MEDS: DICYCLOMINE HCL 10 MG CAPSULE 20 MG PO (07:22)
[2025-06-24 08:00] VITALS: BP 102/66; PULSE 70; RESP 16; O2SAT 96
[2025-06-24 08:30] VITALS: BP 98/61; PULSE 60; RESP 16; O2SAT 98
== END 2025-06-24 08:30 | disposition home or self-care (01) ==
PROVIDERS: Emergency Provider Student in an Organized Health Care Education/Training Program; PCP Family Medicine
DX: R10.84 Generalized abdominal pain (principal); R82.998 Other abnormal findings in urine; R11.2 Nausea with vomiting, unspecified; D72.829 Elevated white blood cell count, unspecified; Z87.442 Personal history of urinary calculi; K21.9 Gastro-esophageal reflux disease without esophagitis; I10 Essential (primary) hypertension
CPT/HCPCS: 36415; 74176; 80053; 81001; 81025; 83690; 85025; 96361; 96374; 96375; 99284; A9270; J1200; J1630; J2270; J2405; J7030